=== PATIENT | male | born 1980 | race Caucasian/White ===

== ENCOUNTER 2023-02-07 09:03 | Outpatient (CLI) | payer OTHER, SELFPAY | END 2023-02-07 09:04 | disposition home or self-care (01) | PROVIDERS: PCP Family Medicine; Visit Provider Family Medicine | DX: Z00.00 Encounter for general adult medical examination without abnormal findings (principal); E66.9 Obesity, unspecified; I10 Essential (primary) hypertension; Z13.6 Encounter for screening for cardiovascular disorders | CPT/HCPCS: 80053; 80061; 82043; 82570 ==

== ENCOUNTER 2023-05-15 19:25 | Outpatient (CLI) | payer OTHER, SELFPAY ==
--- NOTE | 2023-05-29 09:13 | W.PM.SLEEP ---
Sleep Study Details Details Interpreting Provider: Guille Date of Sleep Study: 05/15/23 Sleep Study Details: STUDY TYPE:? Home unattended ? BMI:? 34.6 ORDERING PROVIDER:Melissa Sweeney INDICATION:? Concerns about sleep apnea ? SLEEP SUMMARY:? 553.5 minutes monitored RESPIRATORY SUMMARY:? AHI 29.4, supine 93.6, prone 3.3, left lateral 17.7, right lateral 19. Note only 18 minutes of prone sleep Low oxygen 81 2% of study oxygen less than 90% Snoring 7.5% PERIODIC LIMB MOVEMENTS OF SLEEP:? Not recorded during home study CARDIAC:? Range 44-89, mean 66.6 beats per minute IMPRESSION:? Moderate obstructive sleep apnea with supine position dependency RECOMMENDATION: AutoSet CPAP pressure 4-17 with close follow-up.
== END 2023-05-15 19:26 | disposition home or self-care (01) ==
LOC: SLEEP 19:26
PROVIDERS: PCP Family Medicine; Visit Provider Family Medicine
DX: G47.33 Obstructive sleep apnea (adult) (pediatric) (principal)
CPT/HCPCS: 95806

== ENCOUNTER 2024-06-25 09:50 | Outpatient (CLI) | payer OTHER, SELFPAY ==
--- OUTSIDE RECORDS SUMMARY | 2024-06-29 07:20 | XMS_ITS | Clinical Summary ---
Author Organization [facility] Address [address] [place] [address] Care Team Providers Care Engraver Seals Name Role Phone [facility] Primary Ca re Provider Jack Cheek DPM Unavailable Allergies No known active allergies Medications Medication Sig Dispensed Refills Start Date End Date Status amLODIPine (NORVASC) 5 MG tablet Take 5 mg by mouth daily 3 12/23/2018 Active dexamethasone (DECADRON) 4 MG/ML injectionIndications :Foot pain, bilateral,Plantar fasciitis, bilateral,Pes planus of both feet Apply 1 mL (4 mg) topically once for 1 dose For physical therapy, iontophoresis 30 mL 02/26/2019 Active diclofenac (VOLTAREN) 1 % topical gelIndications:Foot pain, bilateral,Plantar fasciitis, bilateral,Pes planus of both feet Place onto the skin 3 times daily as needed for moderate pain 100 g 1 02/26/2019 Active silver sulfADIAZINE (SILVADENE) 1 % external creamIndications:Adri chocryptosis Apply to procedure site right great toe twice daily with dressing changes until healed 50 g 12/10/2023 Active Active Problems No known active problems Resolved Problems Problem Noted Date Diagnosed Date Resolved Date Pain in both feet 03/06/2019 03/26/2019 Plantar fasciitis 03/06/2019 03/26/2019 Social History Tobacco Use Types Packs/Day Years Used Date Smoking Tobacco: Never Smokeless Tobacco: Current Chew Tobacco Cessation:Ready to Q uit: No; Counseling Given: Yes PHQ-2 Answer Date Recorded PHQ-2 Score 0 12/10/2023 Adolescent Education Answer Date Record ed Getting School Help Needed Not on file 12/10 Sex and Gender Information Value Date Recorded Sex Assigned at Not on file Gender Identity Not on file Sexual Orientation Not on file Last Filed Vital Signs Vital Sign Reading Time Taken Comments Blood Pressure 153/95 12/10/2023 9: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 Pulse - - Temperature - - Respiratory Rate - - Oxygen Saturation - - Inhaled Oxygen Concentration - - Weight 117.9 kg (260 lb) 12/10/2023 9: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 Height 182.9 cm (6') 02/26/2019 2:44 PM CDT Body Mass Index 35.26 02/26/2019 2:44 PM CDT Plan of Treatment Health Maintenance Due Date Last Done Comments ADVANCE CARE PLANNING 1981 ANNUAL REVIEW OF HM ORDERS 1981 GLUCOSE 1981 YEARLY PREVENTIVE VISIT 1981 HIV SCREENING 1996 HEPATITIS C SCREENING 1999 HEPATITIS B IMMUNIZATION (1 of 3 - 19+ 3-dose series) 2000 LIPID 2021 COVID-19 Vaccine ( season) 2023 10/14/2021, 03/15/2021, 02/18/2021 INFLUENZA VACCINE (Season Ended) 2024 09/02/2019, 10/17/2016, 08/31/2015, Additional history exists DTAP/TDAP/TD IMMUNIZATION (3 - Td or Tdap) 02/09/2025 02/09/2015, 08/16/2009 PHQ-2 (once per calendar year) Completed 12/10/2023 HPV IMMUNIZATION Aged Out No longer e ligible based on patient's age to complete this topic IPV IMMUNIZATION Aged Out No longer e ligible based on patient's age to complete this topic MENINGITIS IMMUNIZATION Aged Out No l onger eligible based on patient's age to complete this topic Pneumococcal Vaccine: Pediatrics (0 to 5 Years) and At-Risk Patients (6 to 64 Years) Aged Out No longer eligible based on patient's age to complete this topic RSV MONOCLONAL ANTIBODY Aged Out No l onger eligible based on patient's age to complete this topic Care Teams Engraver Seals Relationship Specialty Start Date End Date Clinic - [facility] [id number] [place] [address] [place] [id number] PCP - General 02/25/19 Jack Cheek DPM [id number] [id number] Assigned Musculoskeletal Provider 12/13/23
--- OUTSIDE RECORDS SUMMARY | 2024-06-29 07:20 | XMS_ITS | Referral Summary ---
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 Pulse - - Temperature - - Respiratory Rate - - Oxygen Saturation - - Inhaled Oxygen Concentration - - Weight 117.9 kg (260 lb) 12/10/2023 9:36 AM TRACK MACHINE OPERATOR REPAIRER Height 182.9 cm (6') 02/26/2019 2:44 PM CDT Body Mass Index 35.26 02/26/2019 2:44 PM CDT Plan of Treatment Not on file Care Teams Reconciliation Specialist Relationship Specialty Start Date End Date Clinic - [place] [address] [facility] [id number] PCP - General 02/25/19 Jack Cheek DPM [phone] [facility] [address] [place] [address] Assigned Musculoskeletal Provider 12/13/23
== END 2024-06-25 09:51 | disposition home or self-care (01) ==
LOC: NFLDREF 06-29 07:19
PROVIDERS: PCP Physician Assistant Medical; Referring Provider Physician Assistant Medical; Visit Provider Physician Assistant Medical
DX: Z00.00 Encounter for general adult medical examination without abnormal findings (principal); I10 Essential (primary) hypertension; E66.9 Obesity, unspecified; Z83.3 Family history of diabetes mellitus
CPT/HCPCS: 80053; 80061; 84443

== ENCOUNTER 2025-08-06 09:36 | Outpatient (CLI) | payer OTHER, SELFPAY | END 2025-08-06 09:37 | disposition home or self-care (01) | PROVIDERS: PCP Physician Assistant Medical; Visit Provider Physician Assistant Medical | DX: I10 Essential (primary) hypertension (principal); E66.9 Obesity, unspecified; Z13.6 Encounter for screening for cardiovascular disorders; Z13.29 Encounter for screening for other suspected endocrine disorder | CPT/HCPCS: 80053; 80061; 84443 ==